=== PATIENT | female | born 1960 | race Caucasian/White ===

== ENCOUNTER 2017-12-10 10:04 | Emergency (ER) | payer BC, MEDICARE ==
[2017-12-10 11:45] VITALS: BP 110/68
--- NOTE | 2017-12-10 11:48 | UC ---
Abdominal Pain Male HPI - HPI Summary HPI Summary: 57 y/o female with multiple co morbidities and h/o R tm rupture presents with drainage from her R ear overnight, blood and pus. ENT dr. Ley unable to see her today has apt thurs. + fever 102 over weekend with some ear pain, denies pain now but takes oxycodone at baseline. + sinus pressure, no neck stiffness, no other complaints, no SOB - History of Current Complaint Stated Complaint: RIGHT EAR COMPLAINT Time Seen by Provider: 12/10/17 11:34 Hx Obtained From: Patient Onset/Duration: Gradual Onset, Lasting Days Timing: Constant Severity Currently: Moderate Pain Intensity: 5 Pain Scale Used: 0-10 Numeric - Allergies/Home Medications Allergies/Adverse Reactions: Allergies Allergy/AdvReac Type Severity Reaction Status Date / Time bupropion [From Wellbutrin] Allergy Shakes Verified 12/10/17 11:37 metronidazole [From Flagyl] Allergy Diarrhea Verified 12/10/17 11:37 nortriptyline Allergy Shakes Verified 12/10/17 11:37 Penicillins Allergy Rash Verified 12/10/17 11:37 Home Medications: Home Medications Aspirin Low Dose CHEW TAB* [Aspirin Low Dose TAB*] 81 mg PO DAILY 12/10/17 [ History Confirmed 12/10/17] Cevimeline HCl 30 mg PO 12/10/17 [History] Cholecalciferol (Vitamin D3) [Vitamin D3] 1,000 unit PO 12/10/17 [History] Cyclobenzaprine TAB* [Flexeril 10 MG TAB*] 10 mg PO TID PRN 12/10/17 [History Confirmed 12/10/17] Cyclosporine 0.05% OPHTH (NF) [Restasis 0.05% OPHTH] 1 drop BOTH EYES 12/10/17 [ History] E-Mycin 500 mg PO TID 12/10/17 [History] Gabapentin CAP(*) [Neurontin 100 mg CAP(*)] 100 mg PO TID 12/10/17 [History Confirmed 12/10/17] Hydroxychloroquine TAB* [Plaquenil TAB*] 200 mg PO DAILY 12/10/17 [History Confirmed 12/10/17] Lansoprazole CAP (NF) [Prevacid CAP (NF)] 15 mg PO DAILY 12/10/17 [History Confirmed 12/10/17] Lansoprazole [Prevacid] 15 mg PO 12/10/17 [History] Linaclotide [Linzess] 145 mcg PO 12/10/17 [History] Mag 64 1 tab PO DAILY 12/10/17 [History] Meloxicam 7.5 mg PO 12/10/17 [History] Ondansetron ODT TAB* [Zofran 4 MG Odt TAB*] 8 mg PO Q6H PRN 12/10/17 [History Confirmed 12/10/17] Pseudoephedrine TAB* [Sudafed TAB*] 30 mg PO Q6H PRN 12/10/17 [History Confirmed 12/10/17] Topiramate [Topamax] 50 mg PO 12/10/17 [History] Ubidecarenone [Coq-10] 30 mg PO 12/10/17 [History] Vortioxetine Hydrobromide [Trintellix] 20 mg PO 12/10/17 [History] Ziprasidone * [Geodon (generic) *] 80 mg PO DAILY 12/10/17 [History Confirmed ] Zolpidem TAB* [Ambien*] 10 mg PO BEDTIME PRN 12/10/17 [History Confirmed ] clonazePAM [Clonazepam] 1 mg PO 12/10/17 [History] oxyCODONE TAB* [Roxycodone TAB 5 mg*] 20 mg PO Q4H PRN 12/10/17 [History Confirmed 12/10/17] rOPINIRole TAB* [Requip TAB*] 1 mg PO BEDTIME 12/10/17 [History Confirmed ] PMH/Surg Hx/FS Hx/Imm Hx Previously Healthy: No - h/o sinus complaints - Surgical History Surgical History: Yes Surgery Procedure, Year, and Place: LEFT GREAT TOE. D&C W/ ENDOMETRIAL ABLATION. RT ANKLE - Social History Alcohol Use: None Substance Use Type: None Smoking Status (MU): Light Every Day Tobacco Smoker Amount Used/How Often: 1/2 PPD Review of Systems Constitutional: Chills, Fatigue ENT: Ear Ache, Sinus Congestion, Sinus Pain/Tenderness, Other - eAR DRAINAGE Is Patient Immunocompromised?: No All Other Systems Reviewed And Are Negative: Yes Physical Exam Triage Information Reviewed: Yes Appearance: Well-Appearing, No Pain Distress, Well-Nourished Vital Signs: Initial Vital Signs Temp 98.1 F 12/10/17 11:37 Pulse 89 12/10/17 11:37 Resp 18 12/10/17 11:37 BP 110/68 12/10/17 11:37 Pulse Ox 99 12/10/17 11:37 Vital Signs Reviewed: Yes Eyes: Positive: Conjunctiva Clear ENT: Positive: Hearing grossly normal, Pharynx normal, Nasal congestion, TM bulging - Right TM unable to be completely visualized due to purulent drainage, blood in ear canal. L TM bulging with fluid behind TM, erythema. + tender to pulling pinna b/l., TM dull, TM red, Sinus tenderness, Uvula midline. Negative: Nasal drainage, Tonsillar swelling, Tonsillar exudate, Dental tenderness Neck: Positive: Supple, Nontender, No Lymphadenopathy Respiratory: Positive: Chest non-tender, Lungs clear, Normal breath sounds, No respiratory distress Cardiovascular: Positive: RRR, No Murmur Abdomen Description: Negative: CVA Tenderness (R), CVA Tenderness (L) Abd Pain Male Course/Dx - Course Course Of Treatment: AOM with rupture of R ear TM. Has follow up with Dr. Ley on , keep appointment topical otic drops given as well as PO abx. no pain meds requested - Differential Dx/Clinical Impression Differential Diagnosis/HQI/PQRI: Appendicitis Provider Diagnoses: AOM b/l, ruptured TM R Discharge - Discharge Plan Condition: Good Disposition: HOME Prescriptions: Azithromyxin NIKITA (NF) [Z-Nikita (Zithromax) 250 mg tabs #6] 2 tab PO .TODAY, THEN 1 DAILY #6 tab Ofloxacin 0.3% OTIC.ISABEL* [Floxin 0.3% OTIC.ISABEL*] 3 drop RIGHT EAR DAILY #1 btl Patient Education Materials: Ruptured Eardrum (ED), Ear Infection (ED) Referrals: Jo Ann Garrison PA [Primary Care Provider] - Additional Instructions: - Increase fluid intake - FOllow up with Dr. Ley on - Daily external drops for your right ear - ABX for your ear infection/ acute otitis media
== END 2017-12-10 12:15 | disposition home or self-care (01) ==
LOC: UCCORT 10:04
DX: H66.93 Otitis media, unspecified, bilateral (principal); H72.91 Unspecified perforation of tympanic membrane, right ear; F17.210 Nicotine dependence, cigarettes, uncomplicated
CPT/HCPCS: 99212; G0463

== ENCOUNTER 2018-10-27 08:47 | Emergency (ER) | payer BC, MEDICARE ==
--- OUTSIDE RECORDS SUMMARY | 2018-10-27 09:10 | XMS REPORT | Continuity of Care Document ---
:1960 External Reference #:[id number] Author Name Jani Johnston DO, MPH Address [address] [place] [address], [address] [place] [address] Care Team Providers Name Role Phone Nesha Mclean PA-C Care Team Information Buggyman Unavailable Jo Ann Garrison P.A. 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 Cigarette Use Current Cigarette Smoker 1/2 Pack Daily ETOH Use Denies alcohol use Tobacco Use Start: Unknown Patient is a current smoker, smokes every day Smoking Status Reviewed: 10/09/18 Patient is a current smoker, smokes every day Allergies, Adverse Reactions, Alerts Date Description Reaction Status Severity Comments 03/02/2016 Penicillin Urticaria Active 03/02/2016 Wellbutrin unsteady Active 03/02/2016 Nortriptyline tremors Active 03/02/2016 Flagyl GI upset Active Medications Medication Date Status Form Strength Qnty SIG Indications Ordering Provider Diclofenac 08/19/ Active Tablets 50mg 90tabs 1 by mouth Johnston, Potassium 2017 three Jani, DO, times a MPH day Xtampza ER 08/01/ Active C12a 18mg 60unit sig: take Johnston, 2017 s 1 tablet Jani, DO, by mouth MPH every 12 hours as directed chronic pain. Oxycodone HCL 04/23/ Active Tablets 20mg 90tabs si/2-1 Johnston, 2017 by mouth Jani, DO, every 6-8 MPH hours as directed chronic pain patient Gabapentin 09/30/ Active Capsules 300mg 90caps si by Preston2016 mouth Jani, DO, three MPH times a day as directed Topamax / Active Tablets 50mg si by Unknown 0000 mouth daily Prevacid / Active Capsules 30mg 1 by mouth Unknown 0000 DR every day. Geodon / Active Capsules 80mg 1 by mouth Unknown 0000 every day Requip / Active Tablets 1mg si by Unknown 0000 mouth daily as directed Brintellix / Active Tablets 20mg 1 by mouth Unknown 0000 daily Plaquenil / Active Tablets 200mg 1 by mouth Unknown 0000 twice daily Aspirin Ec Low / Active Tablets DR 81mg 1 by mouth Unknown Dose 0000 daily Flexeril / Active Tablets 10mg si by Unknown 0000 mouth at night Ambien / Active Tablets 10mg si by Unknown 0000 mouth every night at bedtime as directed Vitamin D3 / Active Tablets 2000Unit 1 by mouth Unknown Super Strength 0000 daily Co Q 10 / Active Capsules 10mg 1 by mouth Unknown 0000 daily Klonopin / Active Tablets 1mg si by Unknown 0000 mouth every 6 hours as directed chronic pain patient Erythromycin / Active Tablets 500mg 1 by mouth Unknown Base 0000 with meals Cevimeline HCL / Active Capsules 30mg 1 by mouth Unknown 0000 three times a day Restasis / Active Emulsion 0.05% 1 drop Unknown 0000 each eye twice daily Zofran Odt / Active Tablets 8mg si by Unknown 0000 Dispers mouth every 8 hours as directed prn Mag64 / Active Tablets ER 535(64mg) 1 by mouth Unknown 0000 mg daily Iron / Active Tablets 325(65Fe) 1 by mouth Unknown 0000 mg daily Nabumetone / Active Tablets 500mg 1 by mouth Unknown 0000 a day Zipsor 08/15/ Hx Capsules 25mg 90caps 1 by mouth Preston, 2017 - three Jani, DO, 08/19/ times a MPH 2017 day Xtampza ER 04/23/ Hx C12a 18mg 60unit take 1 Preston2017 - s tablet by Jani, DO, 07/28/ mouth MPH 2017 every 12 hours as directed chronic pain. Meloxicam 12/26/ Hx Tablets 15mg 30tabs si by Preston, 2017 - mouth Jani, DO, 01/24/ every day MPH 2018 as needed Gabapentin 01/02/ Hx Capsules 100mg 180cap take 2 Johnston, 2016 - s capsules Jani, DO, 09/30/ by mouth MPH 2016 every 8 hours ud. chronic pain. Gabapentin 07/03/ Hx Capsules 100mg 90caps take 1 Johnston, 2015 - capsules Jani, DO, 01/02/ by mouth MPH 2016 every 8 hours ud. chronic pain. Gabapentin 06/18/ Hx Capsules 100mg 15caps take 1 Johnston, 2015 - capsules Jani, DO, 07/03/ by mouth MPH 2015 every evening ud. chronic pain. Lyrica 06/04/ Hx Capsules 50mg 45caps take one Johnston, 2015 - by mouth Jani, DO, 06/18/ every 8 MPH 2015 hours Ud chronic pain. Lyrica 05/03/ Hx Capsules 100mg 90caps sipo Preston, 2015 - every 8 Jani, DO, 06/04/ hours as MPH 2015 directed chronic pain patient Lyrica 03/02/ Hx Capsules 75mg 90caps si by Preston 2015 - mouth Jani, DO, 05/03/ every 8 MPH 2016 hours as directed chronic pain patient Oxycodone HCL 03/02/ Hx Tablets 20mg 120tab si by Preston 2015 - s mouth Jani, DO, 04/23/ every 6 MPH 2018 hours as directed chronic pain patient Lyrica / Hx Capsules 50mg sipo Unknown 0000 - every 12 05/06/ hours as 2016 directed chronic pain patient Oxycodone HCL 00/ Hx Tablets 20mg si by Unknown 0000 - mouth 03/02/ every 4 2015 hours as directed chronic pain patient Meloxicam / Hx Tablets 7.5mg si by Unknown 0000 - mouth 12/26/ every 2017 morning as directed chronic pain. take with food. Immunizations Description No Information Available Vital Signs Date Vital Result Comment 10/09/2018 11:19am BP Systolic 130 mmHg BP Diastolic 78 mmHg Heart Rate 78 /min Respiratory Rate 20 /min Height 59 inches 4'11" Weight 206.00 lb Pain Level 7 Pain at this time. Pain Level With Medicine 6 on average with meds Pain Level Without Medicine 10 08/06 without meds BMI (Body Mass Index) 41.6 kg/m2 09/09/2018 3:19pm BP Systolic 132 mmHg BP Diastolic 84 mmHg Heart Rate 80 /min Respiratory Rate 20 /min Height 59 inches 4'11" Weight 204.00 lb Pain Level 7 Pain at this time. Pain Level With Medicine 7 on average with meds Pain Level Without Medicine 10 08/06 without meds BMI (Body Mass Index) 41.2 kg/m2 08/15/2018 10:06am BP Systolic 136 mmHg BP Diastolic 80 mmHg Heart Rate 84 /min Respiratory Rate 20 /min Height 59 inches 4'11" Weight 202.00 lb Pain Level 8 Pain at this time. Pain Level With Medicine 7 on average with meds Pain Level Without Medicine 08/06 without meds BMI (Body Mass Index) 40.8 kg/m2 07/28/2018 1:58pm BP Systolic 128 mmHg BP Diastolic 74 mmHg Heart Rate 76 /min Respiratory Rate 20 /min Height 59 inches 4'11" Weight 198.00 lb Pain Level 7 Pain at this time. Pain Level With Medicine 6 on average with meds Pain Level Without Medicine 08/06 without meds BMI (Body Mass Index) 40.0 kg/m2 06/25/2018 2:01pm BP Systolic 126 mmHg BP Diastolic 72 mmHg Heart Rate 74 /min Respiratory Rate 20 /min Height 59 inches 4'11" Weight 198.00 lb Pain Level 7 Pain at this time. Pain Level With Medicine 6 on average with meds Pain Level Without Medicine 10 08/06 without meds BMI (Body Mass Index) 40.0 kg/m2 05/27/2018 2:07pm Respiratory Rate 20 /min Height 59 inches 4'11" Weight 203.00 lb Pain Level Without Medicine 10 08/06 without meds BMI (Body Mass Index) 41.0 kg/m2 04/23/2018 11:24am BP Systolic 128 mmHg BP Diastolic 76 mmHg Heart Rate 74 /min Respiratory Rate 20 /min Height 59 inches 4'11" Weight 203.00 lb Pain Level 7 Pain at this time. Pain Level With Medicine 6 on average with meds Pain Level Without Medicine 10 08/06 without meds BMI (Body Mass Index) 41.0 kg/m2 03/28/2018 1:56pm BP Systolic 128 mmHg BP Diastolic 82 mmHg Heart Rate 80 /min Respiratory Rate 20 /min Height 59 inches 4'11" Weight 200.00 lb Pain Level 7 Pain at this time. Pain Level With Medicine 7 on average with meds Pain Level Without Medicine 10 08/06 without meds BMI (Body Mass Index) 40.4 kg/m2 02/26/2018 1:52pm BP Systolic 122 mmHg BP Diastolic 74 mmHg Heart Rate 76 /min Respiratory Rate 20 /min Height 59 inches 4'11" Weight 200.00 lb Pain Level 7 Pain at this time. Pain Level With Medicine 6 on average with meds Pain Level Without Medicine 08/06 without meds BMI (Body Mass Index) 40.4 kg/m2 01/24/2018 1:06pm BP Systolic 132 mmHg BP Diastolic 84 mmHg Heart Rate 76 /min Respiratory Rate 20 /min Height 59 inches 4'11" Weight 192.00 lb Pain Level 8 Pain at this time. Pain Level With Medicine 7 on average with meds Pain Level Without Medicine 08/06 without meds BMI (Body Mass Index) 38.8 kg/m2 12/26/2017 11:22am BP Systolic 132 mmHg BP Diastolic 84 mmHg Heart Rate 80 /min Respiratory Rate 20 /min Height 59 inches 4'11" Weight 192.00 lb Pain Level 8 Pain at this time. Pain Level With Medicine 7 on average with meds Pain Level Without Medicine 08/06 without meds BMI (Body Mass Index) 38.8 kg/m2 11/29/2017 2:56pm BP Systolic 128 mmHg BP Diastolic 72 mmHg Heart Rate 74 /min Respiratory Rate 20 /min Height 59 inches 4'11" Weight 203.00 lb Pain Level 7 Pain at this time. Pain Level With Medicine 6 on average with meds Pain Level Without Medicine 10 08/06 without meds BMI (Body Mass Index) 41.0 kg/m2 10/31/2017 10:53am BP Systolic 126 mmHg BP Diastolic 80 mmHg Heart Rate 82 /min Respiratory Rate 20 /min Height 59 inches 4'11" Weight 203.00 lb Pain Level 7 Pain at this time. Pain Level With Medicine 6 on average with meds Pain Level Without Medicine 10 08/06 without meds BMI (Body Mass Index) 41.0 kg/m2 09/30/2017 1:58pm BP Systolic 122 mmHg BP Diastolic 74 mmHg Heart Rate 76 /min Respiratory Rate 20 /min Height 59 inches 4'11" Weight 203.00 lb Pain Level 7 Pain at this time. Pain Level With Medicine 7 on average with meds Pain Level Without Medicine 10 08/06 without meds BMI (Body Mass Index) 41.0 kg/m2 08/28/2017 11:35am BP Systolic 136 mmHg BP Diastolic 80 mmHg Heart Rate 76 /min Respiratory Rate 20 /min Height 59 inches 4'11" Weight 206.00 lb Pain Level 7 Pain at this time. Pain Level With Medicine 6 on average with meds Pain Level Without Medicine 10 08/06 without meds BMI (Body Mass Index) 41.6 kg/m2 08/01/2017 10:12am BP Systolic 128 mmHg BP Diastolic 82 mmHg Heart Rate 84 /min Respiratory Rate 20 /min Height 59 inches 4'11" Weight 206.00 lb Pain Level 7 Pain at this time. Pain Level With Medicine 6 on average with meds Pain Level Without Medicine 10 08/06 without meds BMI (Body Mass Index) 41.6 kg/m2 07/03/2017 10:09am BP Systolic 128 mmHg BP Diastolic 74 mmHg Heart Rate 76 /min Respiratory Rate 20 /min Height 59 inches 4'11" Weight 209.00 lb Pain Level 7 Pain at this time. Pain Level With Medicine 7 on average with meds Pain Level Without Medicine 10 08/06 without meds BMI (Body Mass Index) 42.2 kg/m2 06/03/2017 11:06am BP Systolic 130 mmHg BP Diastolic 80 mmHg Heart Rate 72 /min Respiratory Rate 16 /min Height 59 inches 4'11" Weight 203.00 lb Pain Level 6 6/10, Pain at this time. Pain Level With Medicine 6 /10, on average with meds Pain Level Without Medicine 10 08/06 without meds BMI (Body Mass Index) 41.0 kg/m2 05/01/2017 11:35am BP Systolic 140 mmHg BP Diastolic 78 mmHg Heart Rate 76 /min Respiratory Rate 16 /min Height 59 inches 4'11" Pain Level 7 7/10, Pain at this time. Pain Level With Medicine 5 /10, on average with meds Pain Level Without Medicine 10 10, 08/06 without meds 04/02/2017 1:53pm BP Systolic 128 mmHg BP Diastolic 80 mmHg Heart Rate 70 /min Respiratory Rate 16 /min Height 59 inches 4'11" Weight 192.00 lb Pain Level 6 6/10, Pain at this time. Pain Level With Medicine 6 6/10, on average with meds Pain Level Without Medicine 10 08/06 without meds BMI (Body Mass Index) 38.8 kg/m2 02/26/2017 2:12pm BP Systolic 138 mmHg BP Diastolic 80 mmHg Heart Rate 70 /min Respiratory Rate 16 /min Height 59 inches 4'11" Weight 192.00 lb Pain Level 6 6/10, Pain at this time. Pain Level With Medicine 6 10, on average with meds Pain Level Without Medicine 10 10, 08/06 without meds BMI (Body Mass Index) 38.8 kg/m2 02/01/2017 12:51pm BP Systolic 118 mmHg BP Diastolic 80 mmHg Heart Rate 78 /min Respiratory Rate 16 /min Height 59 inches 4'11" Weight 191.00 lb Pain Level 6 /10, Pain at this time. Pain Level With Medicine 6 10, on average with meds Pain Level Without Medicine 10 08/06 without meds BMI (Body Mass Index) 38.6 kg/m2 01/02/2017 2:09pm BP Systolic 118 mmHg BP Diastolic 80 mmHg Heart Rate 68 /min Respiratory Rate 16 /min Height 59 inches 4'11" Weight 185.00 lb Pain Level 9 910, Pain at this time. Pain Level With Medicine 6 10, on average with meds Pain Level Without Medicine 10 08/06 without meds BMI (Body Mass Index) 37.4 kg/m2 12/03/2016 2:19pm BP Systolic 134 mmHg BP Diastolic 76 mmHg Heart Rate 72 /min Respiratory Rate 18 /min Height 59 inches 4'11" Weight 184.00 lb Pain Level 8 8/10, Pain at this time. Pain Level With Medicine 6 6/10, on average with meds Pain Level Without Medicine 10 08/06 without meds BMI (Body Mass Index) 37.2 kg/m2 11/02/2016 12:55pm BP Systolic 118 mmHg BP Diastolic 78 mmHg Heart Rate 72 /min Respiratory Rate 16 /min Height 59 inches 4'11" Weight 179.00 lb Pain Level 6 /10, Pain at this time. Pain Level With Medicine 6 6/10, on average with meds Pain Level Without Medicine 10 08/06 without meds BMI (Body Mass Index) 36.1 kg/m2 10/03/2016 1:56pm BP Systolic 130 mmHg BP Diastolic 80 mmHg Heart Rate 76 /min Respiratory Rate 18 /min Height 59 inches 4'11" Weight 180.00 lb Pain Level 6 6/10, Pain at this time. Pain Level With Medicine 6 6/10, on average with meds Pain Level Without Medicine 10 08/06 without meds BMI (Body Mass Index) 36.4 kg/m2 09/03/2016 2:11pm BP Systolic 126 mmHg BP Diastolic 78 mmHg Heart Rate 76 /min Respiratory Rate 20 /min Height 59 inches 4'11" Weight 190.00 lb Pain Level 7 Pain at this time. Pain Level With Medicine 6 on average with meds Pain Level Without Medicine 10 08/06 without meds BMI (Body Mass Index) 38.4 kg/m2 08/03/2016 2:23pm BP Systolic 128 mmHg BP Diastolic 80 mmHg Heart Rate 76 /min Respiratory Rate 18 /min Height 59 inches 4'11" Weight 184.00 lb Pain Level 7 7/10, Pain at this time. Pain Level With Medicine 7 05/06, on average with meds Pain Level Without Medicine 10 08/06 without meds BMI (Body Mass Index) 37.2 kg/m2 07/03/2016 4:11pm BP Systolic 126 mmHg BP Diastolic 78 mmHg Heart Rate 72 /min Respiratory Rate 18 /min Height 59 inches 4'11" Weight 178.00 lb Pain Level 7 7/10, Pain at this time. Pain Level With Medicine 7 10, on average with meds Pain Level Without Medicine 10 08/06 without meds BMI (Body Mass Index) 35.9 kg/m2 06/18/2016 10:17am BP Systolic 124 mmHg BP Diastolic 80 mmHg Heart Rate 76 /min Respiratory Rate 18 /min Height 59 inches 4'11" Weight 186.00 lb Pain Level 7 7/10, Pain at this time. Pain Level With Medicine 7 710, on average with meds Pain Level Without Medicine 10 08/06 without meds BMI (Body Mass Index) 37.6 kg/m2 06/04/2016 10:44am BP Systolic 130 mmHg BP Diastolic 80 mmHg Heart Rate 80 /min Respiratory Rate 18 /min Height 59 inches 4'11" Weight 186.00 lb Pain Level 7 7/10, Pain at this time. Pain Level With Medicine 7 7/10, on average with meds Pain Level Without Medicine 10 10/10 without meds BMI (Body Mass Index) 37.6 kg/m2 05/03/2016 10:56am BP Systolic 116 mmHg BP Diastolic 72 mmHg Heart Rate 70 /min Respiratory Rate 18 /min Height 59 inches 4'11" Weight 175.00 lb Pain Level 7 7/10, Pain at this time. Pain Level With Medicine 7 7/10, on average with meds Pain Level Without Medicine 10 10/10 without meds BMI (Body Mass Index) 35.3 kg/m2 04/02/2016 10:27am BP Systolic 118 mmHg BP Diastolic 72 mmHg Heart Rate 72 /min Respiratory Rate 18 /min Height 59 inches 4'11" Weight 175.00 lb Pain Level 6 6/10, Pain at this time. Pain Level With Medicine 6 6/10, on average with meds Pain Level Without Medicine 10 10 without meds BMI (Body Mass Index) 35.3 kg/m2 03/19/2016 10:46am BP Systolic 122 mmHg BP Diastolic 80 mmHg Heart Rate 70 /min Respiratory Rate 18 /min Height 59 inches 4'11" Weight 172.00 lb Pain Level 6 6/10, Pain at this time. Pain Level With Medicine 5 5/10, on average with meds Pain Level Without Medicine 10 1010 without meds BMI (Body Mass Index) 34.7 kg/m2 03/02/2016 9:44am BP Systolic 118 mmHg BP Diastolic 74 mmHg Heart Rate 78 /min Respiratory Rate 18 /min Height 59 inches 4'11" Weight 172.00 lb Pain Level 7 Pain at this time. Pain Level Without Medicine 10 1010 without meds BMI (Body Mass Index) 34.7 kg/m2 Results Description No Information Available Procedures Date Code Description Status 02/26/2017 58298 Therapeutic, Prophylactic Or Diagnostic Injection Subq/Im Completed 02/01/2017 45350 Therapeutic, Prophylactic Or Diagnostic Injection Subq/Im Completed Encounters Type Date Location Provider Dx Diagnosis Office Visit 09/09/2018 Main Office as Of Jani Johnston DO, G89.29 Other chronic pain 3:45p 11/28/13 MPH M79.7 Fibromyalgia M25.572 Pain in left ankle and joints of left foot M32.9 Systemic lupus erythematosus, unspecified 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 Office Visit 08/15/2018 10:15a Main Office as Jani Johnston G89.29 Other chronic Of 11/28/13 DO, MPH pain M79.7 Fibromyalgia M25.572 Pain in left ankle and joints of left foot 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 Office Visit 07/28/2018 2:00p Main Office as Jani Johnston G89.29 Other chronic Of 11/28/13 DO, MPH pain M79.7 Fibromyalgia M25.572 Pain in left ankle and joints of left foot M32.9 Systemic lupus erythematosus, unspecified 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 Office Visit 06/25/2018 2:00p Main Office as Jani Johnston G89.29 Other chronic Of 11/28/13 DO, MPH pain M25.572 Pain in left ankle and joints of left foot M79.7 Fibromyalgia 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 Office Visit 05/27/2018 2:15p Main Office as Jani Johnston G89.29 Other chronic Of 11/28/13 DO, MPH pain M25.572 Pain in left ankle and joints of left foot 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 Office Visit 04/23/2018 11:30a Main Office as Jani Johnston, G89.29 Other chronic Of 11/28/13 DO, MPH pain M79.7 Fibromyalgia M32.9 Systemic lupus erythematosus, unspecified 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 Office Visit 03/28/2018 1:45p Main Office as Jani Johnston, G89.29 Other chronic Of 11/28/13 DO, MPH pain M79.7 Fibromyalgia M32.9 Systemic lupus erythematosus, unspecified M25.572 Pain in left ankle and joints of left foot F31.89 Other bipolar disorder 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 Office Visit 02/26/2018 2:15p Main Office as Jani Johnston, G89.29 Other chronic Of 11/28/13 DO, MPH pain M79.7 Fibromyalgia M32.9 Systemic lupus erythematosus, unspecified 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 Office Visit 01/24/2018 1:15p Main Office as Jani Johnston G89.29 Other chronic Of 11/28/13 DO, MPH pain M79.7 Fibromyalgia 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 Office Visit 12/26/2017 11:30a Main Office as Jani Johnston G89.29 Other chronic Of 11/28/13 DO, MPH pain M79.7 Fibromyalgia M25.572 Pain in left ankle and joints of left foot M32.9 Systemic lupus erythematosus, unspecified F31.89 Other bipolar disorder 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 Office Visit 11/29/2017 2:30p Main Office as Jani Johnston G89.29 Other chronic Of 11/28/13 DO, MPH pain M79.7 Fibromyalgia M25.572 Pain in left ankle and joints of left foot 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 Office Visit 10/31/2017 10:45a Main Office as Jani Johnston G89.29 Other chronic Of 11/28/13 DO, MPH pain M32.9 Systemic lupus erythematosus, unspecified M79.7 Fibromyalgia M25.572 Pain in left ankle and joints of left foot F31.89 Other bipolar disorder 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 Office Visit 09/30/2017 2:00p Main Office as Jani Johnston G89.29 Other chronic Of 11/28/13 DO, MPH pain M32.9 Systemic lupus erythematosus, unspecified M25.572 Pain in left ankle and joints of left foot M79.7 Fibromyalgia 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 Office Visit 08/28/2017 11:45a Main Office as Kenisha De Dios G89.29 Other 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 M32.9 Systemic lupus erythematosus, unspecified M25.572 Pain in left ankle and joints of left foot M79.7 Fibromyalgia Z71.89 Other specified counseling 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 Office Visit 08/01/2017 10:30a Main Office as Jani Johnston G89.29 Other chronic Of 11/28/13 DO, MPH pain M79.7 Fibromyalgia M32.9 Systemic lupus erythematosus, unspecified M25.572 Pain in left ankle and joints of left foot 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 Office Visit 07/03/2017 10:15a Main Office as Kenisha De Dios G89.29 Other 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 M79.7 Fibromyalgia M32.9 Systemic lupus erythematosus, unspecified M25.572 Pain in left ankle and joints of left foot Z71.89 Other specified counseling 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 Office Visit 06/03/2017 11:15a Main Office as Kenisha De Dios G89.29 Other 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 M32.9 Systemic lupus erythematosus, unspecified M79.7 Fibromyalgia M25.572 Pain in left ankle and joints of left foot Z71.89 Other specified counseling 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 Office Visit 05/01/2017 11:45a Main Office as Kenisha De Dios G89.29 Other 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 M79.7 Fibromyalgia M32.9 Systemic lupus erythematosus, unspecified M25.572 Pain in left ankle and joints of left foot Z71.89 Other specified counseling 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 Office Visit 04/02/2017 2:00p Main Office as Kenisha De Dios G89.29 Other 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 M79.7 Fibromyalgia M32.9 Systemic lupus erythematosus, unspecified Z71.89 Other specified counseling 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 Office Visit 02/26/2017 2:00p Main Office as Kenisha De Dios G89.29 Other 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 M32.9 Systemic lupus erythematosus, unspecified M79.7 Fibromyalgia R53.83 Other fatigue Z71.89 Other specified counseling 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 Office Visit 02/01/2017 1:15p Main Office as Kenisha De Dios G89.29 Other 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 M79.7 Fibromyalgia M32.9 Systemic lupus erythematosus, unspecified Z71.89 Other specified counseling R53.83 Other fatigue 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 Office Visit 01/02/2017 2:00p Main Office as Kenisha De Dios G89.29 Other 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 M32.9 Systemic lupus erythematosus, unspecified M79.7 Fibromyalgia Z71.89 Other specified counseling 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 Office Visit 12/03/2016 2:15p Main Office as Kenisha De Dios G89.29 Other 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 M79.7 Fibromyalgia M32.9 Systemic lupus erythematosus, unspecified 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 F31.89 Other bipolar disorder Office Visit 11/02/2016 1:00p Main Office as Kenisha De Dios G89.29 Other 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 M32.9 Systemic lupus erythematosus, unspecified M79.7 Fibromyalgia Z71.89 Other specified counseling Office Visit 10/03/2016 2:15p Main Office as Kenisha De Dios G89.29 Other 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 M79.7 Fibromyalgia M32.9 Systemic lupus erythematosus, unspecified 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 Office Visit 09/03/2016 2:15p Main Office as Jani Johnston G89.29 Other chronic Of 11/28/13 DO, MPH pain M32.9 Systemic lupus erythematosus, unspecified M79.7 Fibromyalgia Office Visit 08/03/2016 3:00p Main Office as Kenisha De Dios G89.29 Other 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 M79.7 Fibromyalgia M32.9 Systemic lupus erythematosus, unspecified Z71.89 Other specified counseling 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 Office Visit 07/03/2016 4:00p Main Office as Kenisha De Dios G89.29 Other 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 M32.9 Systemic lupus erythematosus, unspecified M79.7 Fibromyalgia Z71.89 Other specified counseling Office Visit 06/18/2016 10:30a Main Office as Kenisha De Dios G89.29 Other 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 M79.7 Fibromyalgia M32.9 Systemic lupus erythematosus, unspecified Office Visit 06/04/2016 10:45a Main Office as Kenisha De Dios G89.29 Other 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 M32.9 Systemic lupus erythematosus, unspecified M79.7 Fibromyalgia Z71.89 Other specified counseling 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 Office Visit 05/03/2016 10:45a Main Office as Kenisha De Dios G89.29 Other 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 M79.7 Fibromyalgia M32.9 Systemic lupus erythematosus, unspecified Z71.89 Other specified counseling 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 Office Visit 04/02/2016 10:45a Main Office as Kenisha De Dios G89.29 Other 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 M79.7 Fibromyalgia 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 Office Visit 03/19/2016 11:15a Main Office as Kenisha De Dios G89.29 Other 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 Symptoms and complaints discussed and reviewed today. No significant changes in physical findings. Continue current medical pain management.M79.7 FibromyalgiaComments:Chronic. Symptoms and complaints discussed and reviewed today. No significant changes in physical findings. Continue current medical pain management.M32.9 Systemic lupus erythematosus, unspecifiedComments:Chronic. Symptoms and complaints discussed and reviewed today. Continue current medical pain management. 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 Will follow as pertains to pain management.Z79.891 covering machine operator ( current) use of opiate analgesicNew Labs:Urine Drug Screen, Ordered: Comments:Urine drug screen sample taken today to monitor opiate use and to monitor use of illicit substances.Will discuss results at next appointment.The following tests were ordered:6 AM, AMPH, RAMSES, JESSICA, BUP, CARIS, COCM, COT, ETG , FENT, MCSHSG, OPI, OXY, PCP, TAPEN, XTSY, ZOLP. ~I_A urine drug test ( UDT) was ordered for this patient and collected on site today. Creatinine has been ordered as well for specimen validity, not for kidney function. Preliminary UDT results are not final and should not be used to determine patient care or plan of treatment. Initially a qualitative immunoassay screen will be done. Any inconsistent or positive findings will be further tested with a more comprehensive quantitative confirmation LCMS study. It is part of the treatment process of prescribing controlled substances and is considered standard of care.~i_AllComments:All above symptoms and complaints discussed as well as diagnoses reviewed.Continue trial of opioid pain management - note changes below; injection therapy, osteopathic manipulation (OMT), PT / modalities, and consults as needed to manage chronic pain.Side effects discussed ; anticipatory guidance given. Patient clearly understands and agrees with all medical treatments and suggestions. All medicines prescribed are adequate and appropriate for this patient's complaint of pain, medical history, physical, and personal goals.Goals of Treatment are to provide adequate and appropriate multidisciplinary medical pain management to increase/ maintain patient's quality of life and functionality while maintaining satisfactory side effect profile and minimizing ship washer end-organ damage. Activity as toleratedContinue with PCP
[2018-10-27 09:19] VITALS: BP 152/90
[2018-10-27] MEDS ORDERED: Albuterol 2.5 MG/3 ML NEB.SOL* (0.083%) INH ONE (09:58)
--- NOTE | 2018-10-27 09:59 | UC ---
UC General HPI - HPI Summary HPI Summary: pt c/o 3 day hx cough, sob, congestion and wheezing. no hx asthma or fever. + smoker. - History of Current Complaint Chief Complaint: UCRespiratory Stated Complaint: COUGH Time Seen by Provider: 10/27/18 09:50 Hx Obtained From: Patient Onset/Duration: Gradual Onset Timing: Constant Pain Intensity: 0 Associated Signs & Symptoms: Positive: Cough, SOB, Wheezing. Negative: Chest Pain, Fever - Allergy/Home Medications Allergies/Adverse Reactions: Allergies Allergy/AdvReac Type Severity Reaction Status Date / Time bupropion [From Wellbutrin] Allergy Shakes Verified 10/27/18 09:16 metronidazole [From Flagyl] Allergy Diarrhea Verified 10/27/18 09:16 nortriptyline Allergy Shakes Verified 10/27/18 09:16 Penicillins Allergy Rash Verified 10/27/18 09:16 PMH/Surg Hx/FS Hx/Imm Hx - Additional Past Medical History Additional PMH: Lupus, chronic pain, Fibromyalgia Psychological History: Bipolar Disorder - Surgical History Surgical History: Yes Surgery Procedure, Year, and Place: LEFT GREAT TOE. D&C W/ ENDOMETRIAL ABLATION. RT [facility] - Social History Alcohol Use: None Substance Use Type: None Smoking Status (MU): Light Every Day Tobacco Smoker Amount Used/How Often: 1/2 PPD - Immunization History Vaccination Up to Date: Yes Review of Systems All Other Systems Reviewed And Are Negative: Yes Constitutional: Positive: Negative Skin: Positive: Negative Eyes: Positive: Negative ENT: Positive: Negative Respiratory: Positive: Shortness Of Breath, Cough Cardiovascular: Positive: Negative Gastrointestinal: Positive: Negative Genitourinary: Positive: Negative Motor: Positive: Negative Neurovascular: Positive: Negative Musculoskeletal: Positive: Negative Neurological: Positive: Negative Psychological: Positive: Negative Physical Exam Triage Information Reviewed: Yes Appearance: Well-Appearing Vital Signs: Initial Vital Signs Temp 97.9 F 10/27/18 09:15 Pulse 90 10/27/18 09:15 Resp 18 10/27/18 09:15 BP 152/90 10/27/18 09:15 Pulse Ox 99 10/27/18 09:15 Vital Signs Reviewed: Yes Eyes: Positive: Conjunctiva Clear ENT: Positive: Pharynx normal, TMs normal. Negative: Nasal congestion, Nasal drainage Neck: Positive: Supple, Nontender, No Lymphadenopathy Respiratory: Positive: No respiratory distress, Decreased breath sounds, Crackles - RLL, Wheezing - RLL Cardiovascular: Positive: RRR, No Murmur Abdomen Description: Positive: Nontender, No Organomegaly, Soft Bowel Sounds: Positive: Present Musculoskeletal: Positive: ROM Intact Neurological: Positive: Alert Psychological: Positive: Age Appropriate Behavior Skin Exam: Normal Re-Evaluation - Re-Evaluation First Eval Re-Evaluation Time: 10:45 Change: Improved - much better aeration. pt notes breathing is easier. Course/Dx - Course Course Of Treatment: local RLL findings on lung exam thus will cover for presumptive bacterial infection. - Differential Dx - Multi-Symptom Differential Diagnoses: Other - pneumonia, bronchitis, RAD, COPD - Diagnoses Provider Diagnosis: Cough, Bronchospasm Discharge - Sign-Out/Discharge Documenting (check all that apply): Patient Departure All imaging exams completed and their final reports reviewed: Yes - Discharge Plan Condition: Stable Disposition: HOME Prescriptions: Albuterol HFA INHALER* [Ventolin HFA Inhaler*] 2 puff INH Q6H #1 mdi DOXYcycline CAP(*) [DOXYcycline 100MG CAP(*)] 100 mg PO BID 10 Days #20 cap Patient Education Materials: Bronchospasm (ED), Acute Cough (ED) Referrals: Jo Ann Garrison PA [Primary Care Provider] - 7 Days - Billing Disposition and Condition Condition: STABLE Disposition: Home - Attestation Statements Provider Attestation: I was available for consult. This patient was seen by the NATALIE. The patient was not presented to, seen by, or examined by me. -Johana
== END 2018-10-27 10:52 | disposition home or self-care (01) ==
LOC: UCCORT 08:47
DX: R05 Cough (principal); J98.01 Acute bronchospasm; Z88.0 Allergy status to penicillin; Z88.1 Allergy status to other antibiotic agents; Z88.8 Allergy status to other drugs, medicaments and biological substances; F17.210 Nicotine dependence, cigarettes, uncomplicated
CPT/HCPCS: 71046; 99212; G0463

== ENCOUNTER 2023-10-31 16:48 | Observation (INO) ==
[2023-10-31 18:01] LABS: ABS Basophils 0.1 10^3/uL (0.0-0.1); ABS Eosinophils 0.2 10^3/uL (0.0-0.5); ABS Lymphocytes 1.5 10^3/uL (1.0-4.8); ABS Monocytes 0.3 10^3/uL (0.0-0.9); ABS Neutrophils 2.6 10^3/uL (1.5-7.6); ABS Nucleated RBC 0.01 10^3/ul; Eosinophil % 5.3 %; Hematocrit 40.1 % (35-45); Hemoglobin 13.4 g/dL (11.5-14.3); Mean Corpuscular Hemoglobin 29.9 pg (27-33); Mean Corpuscular Hgb Conc 33.4 g/dL (31-36); Mean Corpuscular Volume 89.4 fL (80-97); Mean Platelet Volume 7.9 fL (7.5-11.2); Nucleated Red Blood Cells % 0.1 %/100WBC (0.0-0.8); Platelet Count 245 10^3/uL (150-450); Red Blood Count 4.49 10^6/uL (3.63-4.92); Red Cell Distribution Width 14.7 % (12-17); White Blood Count 4.7 10^3/uL (3.8-11.8)
[2023-10-31 18:21] LABS: Albumin 4.3 g/dL (3.2-5.2); Albumin/Globulin Ratio 1.7 (1-3); Calcium 9.1 mg/dL (8.6-10.3); Creatinine, Serum 0.9 mg/dL (0.51-0.95); Globulin 2.6 g/dL (2-4); Total Bilirubin 0.4 mg/dL (0.2-1.0); Total Protein 6.9 g/dL (6.4-8.9); eGFR CKD-EPI 71.4 (>60)
[2023-10-31 18:24] LABS: Activated Partial Thrombo Time 27.7 seconds (26.0-38.0); INR 0.96 (0.83-1.13)
[2023-11-01 02:25] LABS: Urine Appearance Clear; Urine Bilirubin Negative (Negative); Urine Blood Negative (Negative); Urine Color Yellow; Urine Glucose Negative (Negative); Urine Ketones Negative (Negative); Urine Nitrite Negative (Negative); Urine Protein Negative (Negative); Urine Specific Gravity 1.009 (1.002-1.030); Urine Urobilinogen Negative (Negative)
[2023-11-01] MEDS ORDERED: Lactated Ringers 1000 ml BAG 1,000 ML IV ONE (03:55)
[2023-11-01] MEDS ORDERED: Senna TAB 8.6 mg TAB PO PRN (03:56)
[2023-11-01] MEDS ORDERED: Naloxone Nasal Spray 4 MG/0.1 ML NASAL.SPR INTRANASAL PRN (04:05)
[2023-11-01] MEDS ORDERED: Enoxaparin 40 MG/0.4 ML SYR SUBCUT SCH (06:00)
[2023-11-01] MEDS ORDERED: METHYLNALTREXONE 150 MG PO SCH (09:00)
[2023-11-01] MEDS ORDERED: oxyCODONE SR 10 mg TAB PO SCH (09:00)
[2023-11-01] MEDS ORDERED: VORTIOXETINE 20 MG PO SCH ×2 (09:00)
[2023-11-01] MEDS ORDERED: oxyCODONE SR 15 mg TAB PO SCH (10:00)
[2023-11-01] MEDS ORDERED: Vortioxetine 10 mg TAB (NF) PO SCH (10:00)
[2023-11-01 14:08] VITALS: BP 150/82
[2023-11-01] MEDS ORDERED: Methylnaltrexone 150 MG TAB PO SCH (21:00)
== END 2023-11-01 17:10 | disposition home or self-care (01) ==
LOC: ED 16:48 → EDHOLD 16:48 → SUATTDRO 11-01 02:08 → MED 11-01 11:14
PROVIDERS: ADMIT Internal Medicine; ATTEND Internal Medicine